=== PATIENT | male | born 1935 | race Caucasian/White ===

== ENCOUNTER 2017-12-01 08:40 | Outpatient (CLI) | payer OTHER, MEDICAID ==
[2017-12-01 08:59] LABS: CREATININE 1.1 mg/dL (0.6-1.2)
[2017-12-01] MEDS ORDERED: GADOBUTROL 7.5 MMOL/7.5 ML VIAL ONE (09:37)
[2017-12-01] MEDS ORDERED: GADOBUTROL 7.5 MMOL/7.5 ML VIAL IVP ONE (10:09)
--- NOTE | 2017-12-01 12:24 | MRI Report ---
EXAM: MRI BRAIN WITHOUT AND WITH CONTRAST EXAM DATE: 12/01/2017 10:20 AM. CLINICAL HISTORY: Vertigo. COMPARISON: None. TECHNIQUE: Multiplanar, multisequence T1-weighted and fluid-sensitive MR sequences of the brain were performed. Sequences optimized for routine and IAC evaluation. Other: None. IV Contrast: Without and with 7.5 mm Gadavist. FINDINGS: Brain Volume: Mild generalized age-related cerebral volume loss. Parenchyma: No acute hemorrhage or stroke. Minimal white matter T2 hyperintense signal changes, likel y within normal limits for age. Contrast opacification of the major dural venous sinuses is present a s expected. There is no evidence for intracranial enhancing or space-occupying mass. No midline shift or abnormal subdural fluid collection. Ventricles/Cisterns: No hydrocephalus. Symmetric midline retrocerebellar fluid space widening, likely incidental roberta-cisterna magna or arachnoid cyst. Orbits: Prior lens extractions, otherwise unremarkable. Sella Turcica: The pituitary gland, cavernous sinuses, suprasellar cistern and optic chiasm are unrem arkable. IAC: Symmetric and unremarkable. Unremarkable contours of the canalicular and cisternal segments of t he seventh and eighth cranial nerves. No evidence for enhancing mass in this region such as meningiom a or vestibular schwannoma. Sinuses: Right greater than left maxillary sinus mucosal thickening. Probable midline retention cyst along the floor of the sphenoid sinus. Bones: No focal pathologic appearing marrow signal changes. Other: None. IMPRESSION: 1. No MRI evidence for acute intracranial abnormality or enhancing mass. 2. No focal abnormality is seen in the regions of the internal auditory canals. 3. Probably incidental retrocerebellar fluid signal CSF space widening, likely incidental arachnoid c yst or roberta cisterna magna. 4. Mild multifocal paranasal sinus mucosal disease. [facility] Referring Provider Line: [phone] SITE ID: [id number]
== END 2017-12-01 08:41 | disposition home or self-care (01) ==
LOC: LAB 08:40
PROVIDERS: ATTEND Internal Medicine
DX: R42 Dizziness and giddiness (principal)
CPT/HCPCS: 36415; 70553; 82565; A9585

== ENCOUNTER 2018-10-02 18:36 | Emergency (ER) | payer MEDICARE, MEDICAID ==
--- NOTE | 2018-10-02 19:21 | ED Physician Documentation ---
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 He was dizzy with it and had a headache. There is no associated chest pain. He feels pretty much back to normal now. He has no history of atrial fibrillation or other arrhythmia.) Review of Systems Ten Systems: 10 systems reviewed and negative Constitutional: denies: Fever, Chills Cardiac: reports: Palpitations. denies: Chest pain / pressure Respiratory: denies: Dyspnea, Cough GI: denies: Abdominal Pain, Nausea, Vomiting PD PAST MEDICAL HISTORY - Past Medical History Past Medical History: Yes Cardiovascular: Hypertension, High cholesterol Respiratory: None Neuro: None Endocrine/Autoimmune: None GI: None : None HEENT: None Psych: None Musculoskeletal: None, Chronic back pain Derm: None - Past Surgical History General: Hiatal hernia repair Ortho: Shoulder arthroplasty - Present Medications Home Medications: Ambulatory Orders Medication Instructions Recorded Confirmed Finasteride 1 PO DAILY 10/02/18 Lisinopril 20 mg PO DAILY 10/02/18 10/02/18 Terazosin HCl 10 mg PO DAILY PM 10/02/18 10/02/18 - Allergies Allergies/Adverse Reactions: Allergies Allergy/AdvReac Type Severity Reaction Status Date / Time No Known Drug Allergies Allergy Verified 10/02/18 18:59 - Social History Does the pt smoke?: No Smoking Status: Never smoker Does the pt drink ETOH?: Yes ETOH Use: Liquor Does the pt have substance abuse?: No - Immunizations Immunizations: Other immun not current - POLST Patient has POLST: No PD ED PE NORMAL - Vitals Vital signs reviewed: Yes - General General: Alert and oriented X 3, No acute distress - HEENT HEENT: PERRL, EOMI - Neck Neck: Supple, no meningeal sign, No bony TTP - Cardiac Cardiac: RRR, No murmur - Respiratory Respiratory: No respiratory distress, Clear bilaterally - Abdomen Abdomen: Soft, Non tender - Extremities Extremities: No edema, No calf tenderness / cord - Neuro Neuro: Alert and oriented X 3, Normal speech Results - Vitals Vitals: Vital Signs - 24 hr 10/02/18 18:45 Temperature 36.5 C Heart Rate 94 Respiratory 19 Rate Blood Pressure 146/86 H O2 Saturation 94 Oxygen O2 Source Room air - EKG (time done) 1851 Rate: Rate (enter#) (67) Rhythm: NSR [place]: Normal Intervals: Normal CA QRS: Normal Ischemia: Normal ST segments - Labs Labs: Laboratory Tests 10/02/18 10/02/18 10/02/18 19:00 19:00 19:00 WBC 4.3 L RBC 4.07 L Hgb 13.5 L Hct 40.4 L MCV 99.1 H MCH 33.1 H MCHC 33.4 RDW 13.2 Plt Count 136 MPV 8.7 Neut # (Auto) 3.3 Lymph # (Auto) 0.6 L Hendricks # (Auto) 0.4 Eos # (Auto) 0.0 Baso # (Auto) 0.0 Absolute Nucleated RBC 0.00 Nucleated RBC % 0.1 Sodium 139 Potassium 4.3 Chloride 105 Carbon Dioxide 27 Anion Gap 7.0 BUN 23 H Creatinine 1.2 Estimated GFR (MDRD) 58 L Glucose 121 H Calcium 8.7 Magnesium 2.1 Total Bilirubin 0.5 AST 23 ALT 12 Alkaline Phosphatase 44 Troponin I < 0.04 Total Protein 6.1 L Albumin 3.8 Globulin 2.3 Albumin/Globulin Ratio 1.7 Lipase 32 - Rads (name of study) CT Head Radiology: EMP read contemporaneously (NAD) PD MEDICAL DECISION MAKING - ED course ED course: This is an 82-year-old gentleman with complaints that are most consistent with probable paroxysmal atrial fibrillation at home today which has resolved here. There is no evidence of arrhythmia or hypotension on the monitor while in the department. His examination is otherwise normal. He is advised to follow-up with his physician for consideration for Holter monitor. Departure - Departure Disposition: Home, Self Care Clinical Impression: Palpitations, Dizziness Hypertension Qualifiers: Hypertension type: essential hypertension Qualified Code(s): I10 - Essential (primary) hypertension Condition: Good Record reviewed to determine appropriate education?: Yes Instructions: ED Dizziness UKO Comments: As discussed it sounds most likely like you are having potential episodes of atrial fibrillation or other arrhythmia. There is no evidence of this while you are in the department. I recommend he follow-up with Dr. Ingram and consider what is called a Holter monitor. Return for new or worsening symptoms.
[2018-10-02 19:25] LABS: BASOPHILS % (AUTO) 0.3 %; EOSINOPHILS % (AUTO) 0.6 %; HGB - HEMOGLOBIN 13.5 g/dL (14.0-18.0); LYMPHOCYTES # (AUTO) 0.6 10^3/uL (1.5-3.5); LYMPHOCYTES % (AUTO) 14.2 %; MEAN CORPUSCULAR HEMOGLOBIN 33.1 pg (27.0-31.0); MEAN CORPUSCULAR HGB CONC 33.4 g/dL (32.0-36.0); MEAN CORPUSCULAR VOLUME 99.1 fL (80.0-94.0); MEAN PLATELET VOLUME 8.7 fL (7.4-11.4); MONOCYTES # (AUTO) 0.4 10^3/uL (0.0-1.0); MONOCYTES % (AUTO) 9.3 %; NEUTROPHILS # (AUTO) 3.3 10^3/uL (1.5-6.6); NEUTROPHILS % (AUTO) 75.6 %; PLT - PLATELET COUNT 136 10^3/uL (130-450); RED BLOOD COUNT 4.07 10^6/uL (4.70-6.10); RED CELL DISTRIBUTION WIDTH 13.2 % (12.0-15.0); WHITE BLOOD COUNT 4.3 x10^3/uL (4.8-10.8)
[2018-10-02 19:34] LABS: ALBUMIN 3.8 g/dL (3.2-5.5); ALBUMIN/GLOBULIN RATIO 1.7 (1.0-2.2); BILIRUBIN,TOTAL 0.5 mg/dL (0.2-1.0); CALCIUM 8.7 mg/dL (8.5-10.3); CREATININE 1.2 mg/dL (0.6-1.2); MAGNESIUM 2.1 mg/dL (1.7-2.8); TOTAL PROTEIN 6.1 g/dL (6.7-8.2)
--- NOTE | 2018-10-02 21:19 | CT Report ---
Reason: dizzy headachje Procedure Date: 10/02/2018 Accession Number: [id number] / [id number] Procedure: CT - Head W/O CPT Code: FULL RESULT: EXAM: CT HEAD EXAM DATE: 10/02/2018 08:46 PM. CLINICAL HISTORY: Dizzy headache. COMPARISON: 12/01/2017. TECHNIQUE: Multiaxial CT images were obtained from the foramen magnum to the vertex. Reformats: Sagittal and coronal. IV contrast: None. In accordance with CT protocol optimization, one or more of the following dose reduction techniques were utilized for this exam: automated exposure control, adjustment of mA and/or KV based on patient size, or use of iterative reconstructive technique. FINDINGS: Parenchyma: No intraparenchymal hemorrhage. No evidence of mass, midline shift, or CT findings of infarction. Sotelo-white differentiation is distinct. Extraaxial Spaces: There is a Dima cisterna magnum. No subdural or epidural hemorrhage identified. Ventricles: Normal in size and position. Sinuses and Orbits: Imaged paranasal sinuses, orbits, and mastoids show no significant abnormality. Bones: No evidence of fracture or calvarial defect. Other: None. IMPRESSION: No acute intracranial abnormality. [facility]
[2018-10-02 21:39] VITALS: BP 155/83
== END 2018-10-02 21:41 | disposition home or self-care (01) ==
LOC: ED 18:36
DX: R00.2 Palpitations (principal); R42 Dizziness and giddiness; I10 Essential (primary) hypertension; E78.00 Pure hypercholesterolemia, unspecified
CPT/HCPCS: 36415; 70450; 80053; 83690; 83735; 84484; 85025; 93005; 99283; 99284

== ENCOUNTER 2020-03-09 12:44 | Outpatient (CLI) | payer MEDICARE, MEDICAID ==
--- NOTE | 2020-03-09 14:52 | XRAY Report ---
PROCEDURE: Hip w/Pelvis 2-3V LT INDICATIONS: L HIP PAIN TECHNIQUE: AP pelvis with lateral view(s) of the bilateral hip(s). COMPARISON: None. FINDINGS: Bones: No fractures or dislocations. Pelvic ring appears intact. No suspicious bony lesions. Mild bilateral hip joint space narrowing and periarticular osteophyte formation. Soft tissues: The visualized bowel gas pattern is normal. No suspicious soft tissue calcifications. IMPRESSION: 1. Bilateral hip osteoarthritis. 2. No acute fracture. No osseous lesion. If symptoms and/or clinical suspicion for pathology continue , further assessment with repeat plain films, or advanced imaging (e.g., CT, MRI, or bone scan) is re commended for further assessment. Reviewed by: Tomás Hauser MD on 03/09/2020 2:51 PM PDT Approved by: Tomás Hauser MD on 03/09/2020 2:51 PM PDT Station ID: [id number]
== END 2020-03-09 12:45 | disposition home or self-care (01) ==
LOC: DI 12:44
PROVIDERS: ATTEND Internal Medicine
DX: M16.0 Bilateral primary osteoarthritis of hip (principal)

== ENCOUNTER 2020-07-20 08:23 | Outpatient (CLI) | payer MEDICARE, MEDICAID ==
--- NOTE | 2020-07-20 09:14 | XRAY Report ---
PROCEDURE: Lumbar Spine 2 View INDICATIONS: SPONDYLOSIS LUMBAR TECHNIQUE: 2 views of the lumbar spine were acquired. COMPARISON: None. FINDINGS: Bones: 5 [id number] vertebrae are present. There is mild L5-S1 anterolisthesis. There is appro ximately 25 degrees of thoracolumbar spine convex left scoliosis. No vertebral body compression fract ures. No suspicious bony lesions. Moderate L1-L2, L2-L3 and L3-L4 degenerative disc disease. Mild L4 -L5 and L5-S1 degenerative disease. Moderate L4-L5 and L5-S1 facet arthropathy. Soft tissues: Overlying bowel gas pattern is normal. No suspicious soft tissue calcifications. IMPRESSION: 1. Convex left lumbar spine scoliosis. 2. Multilevel degenerative disease. 3. Multilevel facet arthropathy. 4. No fracture. No acute osseous lesion. If there is continued clinical concern for pathology, then M RI should be considered for further evaluation. Reviewed by: Olinda Yousif MD, PhD on 07/20/2020 9:13 AM PDT Approved by: Olinda Yousif MD, PhD on 07/20/2020 9:13 AM PDT Station ID: [id number]
== END 2020-07-20 08:24 | disposition home or self-care (01) ==
LOC: DI 08:23
PROVIDERS: ATTEND Orthopaedic Surgery
DX: M47.816 Spondylosis without myelopathy or radiculopathy, lumbar region (principal); M51.36 Other intervertebral disc degeneration, lumbar region; M41.86 Other forms of scoliosis, lumbar region
CPT/HCPCS: 72100

== ENCOUNTER 2022-04-17 10:53 | Outpatient (CLI) | payer MEDICARE, MEDICAID ==
[2022-04-17 15:11] LABS: BASOPHILS % (AUTO) 0.3 %; EOSINOPHILS % (AUTO) 1.2 %; HCT - HEMATOCRIT 40.4 % (42.0-52.0); HGB - HEMOGLOBIN 13.4 g/dL (14.0-18.0); LYMPHOCYTES # (AUTO) 0.9 10^3/uL (1.5-3.5); LYMPHOCYTES % (AUTO) 27.2 %; MEAN CORPUSCULAR HEMOGLOBIN 32.7 pg (27.0-31.0); MEAN CORPUSCULAR HGB CONC 33.2 g/dL (32.0-36.0); MEAN CORPUSCULAR VOLUME 98.5 fL (80.0-94.0); MONOCYTES # (AUTO) 0.4 10^3/uL (0.0-1.0); MONOCYTES % (AUTO) 11.1 %; NEUTROPHILS # (AUTO) 1.9 10^3/uL (1.5-6.6); NEUTROPHILS % (AUTO) 59.9 %; PLT - PLATELET COUNT 145 10^3/uL (130-450); RED CELL DISTRIBUTION WIDTH 12.7 % (12.0-15.0); WHITE BLOOD COUNT 3.2 x10^3/uL (4.8-10.8)
[2022-04-17 15:23] LABS: ALBUMIN 4.2 g/dL (3.2-5.5); ALBUMIN/GLOBULIN RATIO 1.8 (1.0-2.2); ALKALINE PHOSPHATASE 46 IU/L (42-121); ALT ALANINE AMINOTRANSFERASE 16 IU/L (10-60); AST ASPARTATE AMINOTRANSFERASE 25 IU/L (10-42); BILIRUBIN,TOTAL 0.9 mg/dL (0.2-1.0); BUN - BLOOD UREA NITROGEN 22 mg/dL (6-20); CALCIUM 9.4 mg/dL (8.5-10.3); CARBON DIOXIDE - CO2 27 mmol/L (21-32); CHLORIDE 105 mmol/L (101-111); CHOL/HDL RATIO 4.5 (<5.0); CHOLESTEROL 341 mg/dL; CREATININE 1.2 mg/dL (0.6-1.2); GFR - MDRD 58 (>89); GLUCOSE 91 mg/dL (70-100); HDL CHOLESTEROL 75 mg/dL; LDL CHOLESTEROL,CALCULATED 251 mg/dL; LDL/HDL RATIO 3.3 (<3.6); POTASSIUM 4.4 mmol/L (3.5-5.0); SODIUM 138 mmol/L (135-145); TOTAL PROTEIN 6.5 g/dL (6.7-8.2); TRIGLYCERIDES 77 mg/dL; VLDL CHOLESTEROL 15 mg/dL
[2022-04-17 15:29] LABS: PSA TOTAL 1.461 ng/mL (0.000-2.000)
[2022-04-17 15:33] LABS: THYROID STIMULATING HORMONE 0.84 uIU/mL (0.34-5.60)
== END 2022-04-17 10:54 | disposition home or self-care (01) ==
LOC: LAB.S 10:53
PROVIDERS: ATTEND Internal Medicine
DX: Z00.00 Encounter for general adult medical examination without abnormal findings (principal); N40.0 Benign prostatic hyperplasia without lower urinary tract symptoms; R53.83 Other fatigue; H91.90 Unspecified hearing loss, unspecified ear; Z86.010 Personal history of colon polyps; E78.5 Hyperlipidemia, unspecified; I10 Essential (primary) hypertension; D72.819 Decreased white blood cell count, unspecified; Z79.899 Other long term (current) drug therapy; D69.6 Thrombocytopenia, unspecified
CPT/HCPCS: 36415; 80053; 80061; 82607; 83721; 84153; 84443; 85025

== ENCOUNTER 2023-05-14 11:59 | Outpatient (CLI) | payer MEDICARE, MEDICAID ==
--- NOTE | 2023-05-14 13:41 | CT Report ---
PROCEDURE: HEAD WO INDICATIONS: MEMORY PROBLEM TECHNIQUE: Noncontrast 4.5 mm thick angled axial sections acquired from the foramen magnum to the vertex. For r adiation dose reduction, the following was used: automated exposure control, adjustment of mA and/or kV according to patient size. COMPARISON: CT head 10/02/2018. FINDINGS: Image quality: Excellent. CSF spaces: Basal cisterns are patent. No extra-axial fluid collections. Ventricles are normal in size and shape. Brain: No midline shift. No intracranial masses or hemorrhage. Sotelo-white matter interface is norm al. Age-related global volume loss. Mild chronic microvascular ischemic change. 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 Skull and face: Calvarium and visualized facial bones are intact, without suspicious lesions. Bilat eral lens replacement. Sinuses: Scattered mild paranasal sinus mucosal disease and mucous retention cyst. The mastoids are c lear. IMPRESSION: 1.No acute intracranial abnormalities. 2.Age-related global volume loss and mild chronic microvascular ischemic change. Reviewed by: Rusty Jewell MD on 05/14/2023 1:40 PM PDT Approved by: Rusty Jewell MD on 05/14/2023 1:40 PM PDT Station ID: [id number]
--- NOTE | 2023-05-14 14:20 | XRAY Report ---
PROCEDURE: Shoulder 3 View LT INDICATIONS: Left shoulder pain TECHNIQUE: 3 views of the shoulder were acquired. COMPARISON: None. FINDINGS: Bones: No fractures or dislocations. No suspicious bony lesions. Visualized ribs appear intact. Distal clavicle resection. Superior subluxation of the humerus. Glenohumeral joint space narrowing wi th osteophytosis. Soft tissues: No suspicious soft tissue calcifications. IMPRESSION: Moderate glenohumeral osteoarthritis. Superior subluxation of the humerus, most consistent with prior rotator cuff injury. Reviewed by: Vladimir Barrientos on 05/14/2023 2:19 PM PDT Approved by: Vladimir Barrientos on 05/14/2023 2:19 PM PDT Station ID: [id number]
== END 2023-05-14 12:00 | disposition home or self-care (01) ==
LOC: DI 11:59
PROVIDERS: ATTEND Internal Medicine
DX: R41.3 Other amnesia (principal); M19.012 Primary osteoarthritis, left shoulder; G31.89 Other specified degenerative diseases of nervous system; I67.82 Cerebral ischemia

== ENCOUNTER 2024-04-11 15:54 | Outpatient (CLI) | payer MEDICARE, MEDICAID ==
--- NOTE | 2024-04-11 18:35 | XRAY Report ---
PROCEDURE: Hip w/Pelvis 2-3V RT INDICATIONS: HIP PAIN TECHNIQUE: There is an weightbearing AP view of the pelvis, as well as a weightbearing lateral view o f the right hip COMPARISON: None. FINDINGS: Bones: No fractures or dislocations. No suspicious bony lesions. There is moderate superior joint space narrowing seen involving both hips. There is associated remode ling change, with subchondral sclerosis and osteophyte formation. Note is made of age-appropriate degenerative change of the lower lumbar spine. Soft tissues: No suspicious soft tissue calcifications or masses. Right lower quadrant anastomotic s taple lines are seen. IMPRESSION: Moderate degenerative change is seen involving both hips, which is similar to the prior examination. Reviewed by: Asaf Quigley MD on 04/11/2024 5:34 PM [facility] Approved by: Asaf Quigley MD on 04/11/2024 5:34 PM ADAIR Station ID: [id number]
== END 2024-04-11 15:55 | disposition home or self-care (01) ==
LOC: DI 15:54
PROVIDERS: ATTEND Internal Medicine
DX: M16.0 Bilateral primary osteoarthritis of hip (principal)

== ENCOUNTER 2024-05-03 13:50 | Outpatient (CLI) | payer MEDICARE, MEDICAID ==
--- NOTE | 2024-05-03 16:37 | MRI Report ---
Hip RT WO CLINICAL HISTORY: 88 years of age, Male, PAIN IN RIGHT HIP. COMPARISON: None Technique: Multisequence, multiplanar MRI of the right hip was performed without contrast. IV CONTRAST: Not given FINDINGS: Labrum: Circumferential labral tear. There is a 3 mm paralabral cyst about the posterior labrum. The re is a 8 mm paralabral cyst about the anterior inferior labrum (series 7, image 22). Ligaments: Unremarkable. Tendons: Mild right iliopsoas bursitis. There is mild muscle edema of the right adductor muscle, and likely representing mild muscle strain. Mild muscle edema of the left adductor muscle about the pubic body, partially visualized, representing mild muscle strain as well. Mild tendinosis of the right cole mstring tendon with low-grade tear. Low-grade tear of the right gluteal minimus. The right gluteal me dius is unremarkable. Osseous and cartilaginous structures: Diffuse mild chondral thinning of the right hip. No acute fract ure of the right hip. No avascular necrosis of the right femoral head. Sacroiliac joints and spine: Grade 1 anterolisthesis of L5 on S1. Fibrovascular endplate change at L3 -4, incompletely visualized. The visualized sacrum is intact. Bilateral sacroiliac joints are unremarkable. 1.0 cm T2 hyperintense, T1 hypointense lesion in the left acetabulum, nonspecific. Moderate degenerat jaci changes of the left hip with joint space narrowing and subchondral cystic changes in the left sup erior acetabulum. Small left hip effusion. Miscellaneous: Moderate enlargement of the prostate. Multiple T2 hypointense lesion in the transition al zone, with the largest measuring 1.2 cm in the left transitional zone, incompletely evaluated. IMPRESSION: 1.Circumferential labral tear of the right hip with multiple paralabral cysts, with the largest measu ring 8 mm. 2.Mild right iliopsoas bursitis. 3.Mild muscle strain of bilateral adductor muscle. 4.Mild tendinosis of the right hamstring tendon with low-grade tear. 5.Low-grade tear of the right gluteal minimus. 6.Diffuse chondral thinning of the right hip. 7.1.0 cm T2 hyperintense lesion in the left acetabulum, nonspecific. 8.Moderate enlargement of the prostate with multiple T2 hypointense lesion, incompletely characterize d. Recommend further evaluation with prostate MRI. Prostate carcinoma cannot be excluded. Reviewed by: Terri Lassiter MD on 05/03/2024 4:35 PM PDT Approved by: Terri Lassiter MD on 05/03/2024 4:35 PM PDT Station ID: [id number]
== END 2024-05-03 13:51 | disposition home or self-care (01) ==
LOC: DI 13:50
PROVIDERS: ATTEND Internal Medicine
DX: S73.101A Unspecified sprain of right hip, initial encounter (principal); M71.551 Other bursitis, not elsewhere classified, right hip; S76.011A Strain of muscle, fascia and tendon of right hip, initial encounter; M11.251 Other chondrocalcinosis, right hip; N40.0 Benign prostatic hyperplasia without lower urinary tract symptoms; R93.6 Abnormal findings on diagnostic imaging of limbs